=== PATIENT | male | born 1985 | race African-American/Black ===

== ENCOUNTER 2017-08-26 18:56 | Emergency (ER) | payer OTHER ==
[~2017-08-26] VITALS: Ht 172.7 cm; Wt 77.1 kg
[2017-08-26 19:02] VITALS: BP 114/73
--- NOTE | 2017-08-26 19:48 | ED GI/GU/ABDOMINAL COMPLAINT ---
History of Present Illness General Chief Complaint: General Adult Stated Complaint: "I JUST TREATMENT FOR INFECTION" Source: patient Exam Limitations: no limitations Vital Signs & Intake/Output Vital Signs & Intake/Output Vital Signs Date Time Temp Pulse Resp B/P B/P Pulse O2 O2 Flow FiO2 Mean Ox Delivery Rate 08/26 1902 98.2 82 18 114/73 98 Room Air Allergies Coded Allergies: No Known Allergies (08/26/17) Triage Note: 32 YO MALE TO TRIAGE FOR EVAL OF POSSIBEL STD. STATES "I JUST KNOW SOMETHING IS WRONG DOWN THERE" DNEIS URIANRY S/S. STATES ?WART ON [place]. DENIES ANY PENILE DISCHARGE. Triage Nurses Notes Reviewed? yes Onset: Abrupt Duration: day(s): (2), constant, continues in ED, getting worse Timing: single episode today Location: [place] Activities at Onset: sexual activity Prior Abdominal Problems: similar symptoms ([place] ) Sexually Active: Yes Last Time You Were Sexual: less than 2 months ago Use of Protection: No No Modifying Factors: none HPI: 32-year-old male history of STDs PRESENTS evaluation of penile discharge. Patient states he had unprotected sex with a new partner and several days ago developed penile discharge. He states he's had the past diagnosed with chlamydia. He denies any frequency urgency dysuria abdominal pain penile lesions fever back pain or rashes. No testicular pain. Past History Travel History Traveled to [place] past 21 day No Medical History Any Pertinent Medical History? 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 No Review of Systems Review of Systems Constitutional: Reports: no symptoms. EENTM: Reports: no symptoms. Respiratory: Reports: no symptoms. Cardiovascular: Reports: no symptoms. GI: Reports: no symptoms. Genitourinary: Reports: see HPI, discharge. Musculoskeletal: Reports: no symptoms. Skin: Reports: no symptoms. Neurological/Psychological: Reports: no symptoms. Hematologic/Endocrine: Reports: no symptoms. Immunologic/Allergic: Reports: no symptoms. All Other Systems: Reviewed and Negative Physical Exam Physical Exam General Appearance: well developed/nourished, no apparent distress, alert, awake Head: atraumatic, normal appearance Eyes: Bilateral: normal appearance, EOMI. Ears, Nose, Throat, Mouth: moist mucous membrane Neck: normal inspection, supple, full range of motion Respiratory: normal breath sounds, chest non-tender, no respiratory distress, lungs clear Cardiovascular: regular rate/rhythm Gastrointestinal: soft, non-tender Male Genitals: normal genitalia, no testicular tenderness or swelling no penile lesions or discharge Back: normal inspection, normal range of motion Extremities: normal range of motion Neurologic/Psych: no motor/sensory deficits, awake, alert, oriented x 3, normal gait Skin: intact, normal color, warm/dry Core Measures ACS in differential dx? No Sepsis Present: No Sepsis Focused Exam Completed? No Progress Differential Diagnosis: STD, testicular torsion, ureterolithiasis, urinary retention, urethritis, UTI/pyelo Plan of Care: Orders Procedure Date/time Status CHLAMYDIA-GC DNA PROBE 08/26 1929 Active URINALYSIS 08/26 1929 Complete Laboratory Tests 08/26/171946: Urine Color YEL, Urine Clarity HAZY H, Urine pH 6.0, Ur Specific [place] 1.025, Urine Protein TRACE H, Urine Ketones TRACE H, Urine Nitrite NEG, Urine Bilirubin NEG, Urine Urobilinogen 2.0 H, Ur Leukocyte Esterase NEG, Ur Microscopic SEDIMENT EXAMINED, Urine RBC RARE, Urine WBC 1-3 H, Ur Epithelial Cells RARE, Urine Bacteria RARE H, Urine Mucus FEW, Urine Hemoglobin NEG, Urine Glucose NEG Microbiology 08/26 1946 URINE ROUT: GC DNA Probe - RECD 08/26 1946 URINE ROUT: Chlamydia DNA Probe (ZUNILDA) - RECD Patient is here reporting penile discharge for the past few days after having object sex with a new partner. He has a history of chlamydia in the past and feels like this is similar. Urine sent for gonorrhea chlamydia testing and urinalysis. Patient will be treated empirically with Zithromax and ceftriaxone in the emergency Department. Advised him to notify all of his sex partners they can be tested and treated. No sex for at least a week. use condoms in the future. discussed prevention of STDs. Discussed return precautions in detail. patient agrees the plan Initial ED EKG: none Departure Departure Disposition: HOME OR SELF CARE Condition: Stable Clinical Impression Primary Impression: Urethritis Referrals: Patient Has No Primary Care Dr (PCP/Family) Additional Instructions: No sex until your infection status is known. Use condoms in the future. Notify YOUR sex partners to be tested and treated. Monitor symptoms return with any concerns. Departure Forms: Customer Survey General Discharge Information
== END 2017-08-26 20:43 ==
LOC: ERH 18:56
DX: N34.2 Other urethritis (principal)
CPT/HCPCS: 81001; 87491; 87591; 96372; J0696

== ENCOUNTER 2017-11-17 16:54 | Emergency (ER) | payer OTHER ==
[~2017-11-17] VITALS: Ht 172.7 cm; Wt 74.8 kg
[~2017-11-17 16:54] MED LIST: DOXYCYCLINE HY100 M4 PO
[2017-11-17 17:04] VITALS: BP 113/67
--- NOTE | 2017-11-17 17:44 | ED HAND/WRIST INJURY COMPLAINT ---
History of Present Illness General Chief Complaint: Hand or Wrist Injury Stated Complaint: LAC TO RT HAND FROM FALLING ON GLASS Source: patient Exam Limitations: no limitations Vital Signs & Intake/Output Vital Signs & Intake/Output Vital Signs Date Time Temp Pulse Resp B/P B/P Pulse O2 O2 Flow FiO2 Mean Ox Delivery Rate 11/17 1758 Room Air 11/17 1704 98.6 69 18 113/67 98 Room Air Allergies Coded Allergies: No Known Allergies (08/26/17) Reconcile Medications Cephalexin (Keflex) 750 MG CAPSULE 1 CAP PO BID prevent infection Doxycycline Hyclate 100 MG TABLET 1 TAB PO BID URETHRITIS Triage Note: 32 YO MALE TO TRIAGE FOR EVAL OF LAC TO R HAND S/P GLASS FALLING ON IT. PT ABLE TO MOVE FINGERS, +PMS TO EXTREMITY. BLEEDING CONTROLLED. Triage Nurses Notes Reviewed? yes Occurred: just prior to arrival Duration: minute(s):, constant, continues in ED Timing: single episode today Injury Environment: home Method of Injury: laceration HPI: Patient presents for evaluation of her right hand laceration that occurred about 2 hours prior to arrival. Patient states a window pane fell cutting his right hand. He denies loss of sensation or function. Past History Travel History Traveled to [place] past 21 day No Medical History Any Pertinent Medical History? 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 No Review of Systems Review of Systems Constitutional: Reports: no symptoms. EENTM: Reports: no symptoms. Respiratory: Reports: no symptoms. Cardiovascular: Reports: no symptoms. GI: Reports: no symptoms. Genitourinary: Reports: no symptoms. Musculoskeletal: Reports: no symptoms. Skin: Reports: see HPI. Neurological/Psychological: Reports: no symptoms. Hematologic/Endocrine: Reports: no symptoms. Immunologic/Allergic: Reports: no symptoms. All Other Systems: Reviewed and Negative Physical Exam Physical Exam Hand Left: normal inspection Hand Right: see below Comments: Gen.: Well-nourished, well-developed, no acute respiratory distress. Head: Normocephalic, atraumatic. Eyes: Normal inspection bilaterally Ears: Normal inspection bilaterally Nose: Normal inspection Throat/mouth : Moist mucosa Neck: Supple, full range of motion, no goiter Heart: Regular rate and rhythm Lungs: Quiet respirations Back: Normal range of motion Extremities: Right hand: Linear laceration of the thenar eminence, full- thickness, patient has normal movement of all fingers and normal sensation to all fingers Neurologic: Cranial nerves grossly intact, speech is clear Skin: warm and dry Psychiatric: Calm, cooperative, no apparent delusions or hallucinations Progress Differential Diagnosis: fx,tendon injury, vascular injury, foreign body Plan of Care: Orders Procedure Date/time Status XRY-HAND, 3 View RIGHT 11/17 1708 Active Current Medications Sig/Hilda Start time Last Medication Dose Stop Time Status Admin Lidocaine 20 ML ONCE ONE 11/17 1744 UNVr (Lidocaine 1%) 11/17 1745 Diagnostic Imaging: Discussed w/RAD: Radiology Read. Radiology Impression: PATIENT: SERINA TYLER PRESENT AGE: 32 PATIENT ACCOUNT NO: [id number] : 87 LOCATION: [facility] ORDERING PHYSICIAN: Tammy DAI SERVICE DATE: 11/17/17 EXAM TYPE: RAD - XRY-HAND, RIGHT EXAMINATION: XR HAND, RIGHT CLINICAL INFORMATION: Status post fall with laceration COMPARISON: None TECHNIQUE: PA, lateral, and oblique views of the right hand. FINDINGS: There is soft tissue changes at the base of the first metacarpal consistent with a history of reported laceration and focal trauma. No fracture of the underlying osseous structures. The remainder of the examination of the right hand is within normal limits. No radiopaque foreign body identified. IMPRESSION: Focal right hand laceration adjacent to the base of the first metacarpal. No other right hand findings. DICTATED BY: My Fleming MD DATE/TIME DICTATED:11/17/171749 TEACHERS' AIDE :PRABHJOT DATE/TIME TRANSCRIBED:11/17/171749 CONFIDENTIAL, DO NOT COPY WITHOUT APPROPRIATE AUTHORIZATION. <Electronically signed in Other Vendor System> SIGNED BY: My Fleming MD 11/17/171754 Comments: 6 sutures placed by PA student with my direct supervision of all critical components of the procedure. Departure Departure Disposition: HOME OR SELF CARE Condition: Stable Clinical Impression Primary Impression: Hand laceration Qualifiers: Encounter type: initial encounter Foreign body presence: without foreign body Laterality: right Qualified Code: S61.411A - Laceration without foreign body of right hand, initial encounter Referrals: Patient Has No Primary Care Dr (PCP/Family) Departure Forms: Customer Survey General Discharge Information Prescriptions: Current Visit Scripts Cephalexin (Keflex) 1 CAP PO BID #10 CAP Procedures Laceration/Wound Repair Laceration/Wound Repair: Wound's Depth, Shape: subcutaneous Wound Length (cm): 3 Wound Explored: clean Irrigated w/ Saline (ccs): 200 Betadine Prep? Yes Anesthesia: 1% lidocaine Wound Debrided: minimal Wound Repaired With: sutures Suture Size/Type: 5:0, nylon Number of Sutures: 6
--- NOTE | 2017-11-17 17:55 | RADIOLOGY REPORT ---
EXAMINATION: XR HAND, RIGHT CLINICAL INFORMATION: Status post fall with laceration COMPARISON: None TECHNIQUE: PA, lateral, and oblique views of the right hand. FINDINGS: There is soft tissue changes at the base of the first metacarpal consistent with a history of reported laceration and focal trauma. No fracture of the underlying osseous structures. The remainder of the examination of the right hand is within normal limits. No radiopaque foreign body identified. IMPRESSION: Focal right hand laceration adjacent to the base of the first metacarpal. No other right hand findings.
[2017-11-17] MEDS ORDERED: KEFLEX750 M1 PO (19:10)
== END 2017-11-17 19:35 ==
LOC: ERH 16:54
DX: S61.411A Laceration without foreign body of right hand, initial encounter (principal); W25.XXXA Contact with sharp glass, initial encounter; Y92.009 Unspecified place in unspecified non-institutional (private) residence as the place of occurrence of the external cause; Y93.9 Activity, unspecified
CPT/HCPCS: 73130-RT; J2001